=== PATIENT | male | born 2000 | race Caucasian/White ===

== ENCOUNTER 2024-03-27 20:29 | Emergency (ER) | payer SELFPAY ==
[~2024-03-27] VITALS: Ht 185.4 cm; Wt 77.2 kg
[2024-03-27 20:31] VITALS: BP 158/98; TEMP 97.5; O2SAT 100
[2024-03-27 21:04] LABS: BASO # 0.1 10^3/uL (0.0-0.2); BASO % 0.9 % (0.0-1.0); EOS # 0.1 10^3/uL (0.0-0.5); EOS % 1.7 % (0.0-3.0); HEMATOCRIT 40.5 % (42.0-52.0); HEMOGLOBIN 14.1 g/dl (13.5-17.5); LYMPH # 1.9 10^3/uL (1.5-5.0); LYMPH % 26.9 % (24.0-44.0); MEAN CORPUSCULAR HEMOGLOBIN 31.5 pg (27.0-33.0); MEAN CORPUSCULAR HGB CONC 34.8 g/dl (32.0-36.5); MEAN CORPUSCULAR VOLUME 90.4 fl (80.0-96.0); MONO # 0.6 10^3/uL (0.0-0.8); NEUTROPHILS # 4.3 10^3/uL (1.5-8.5); NEUTROPHILS % 62.4 % (36.0-66.0); PLATELET COUNT, AUTOMATED 187 10^3/uL (150-450); RED BLOOD COUNT 4.48 10^6/uL (4.30-6.10); WHITE BLOOD COUNT 6.9 10^3/uL (4.0-10.0)
[2024-03-27 21:35] LABS: BLOOD UREA NITROGEN 10 MG/DL (9-23); CALCIUM LEVEL 9.1 MG/DL (8.5-10.1); CARBON DIOXIDE LEVEL 29 MMOL/L (20-31); CHLORIDE LEVEL 107 MMOL/L (98-107); CREATININE FOR GFR 0.93 MG/DL (0.70-1.30); GLOMERULAR FILTRATION RATE > 60.0 (>60); GLUCOSE, FASTING 82 MG/DL (60-100); POTASSIUM SERUM 4.4 MMOL/L (3.5-5.1); SODIUM LEVEL 144 MMOL/L (136-145)
== END 2024-03-27 23:01 | disposition left against medical advice (07) ==
LOC: M ED 20:29
DX: Z53.21 Procedure and treatment not carried out due to patient leaving prior to being seen by health care provider (principal)

== ENCOUNTER 2024-04-16 13:25 | Inpatient (IN) | payer OTHER, SELFPAY ==
[~2024-04-16] VITALS: Ht 185.4 cm; Wt 69.6 kg
[2024-04-16 14:13] LABS: HEMATOCRIT 46.7 % (42.0-52.0); HEMOGLOBIN 15.9 g/dl (13.5-17.5); MEAN CORPUSCULAR HEMOGLOBIN 31.4 pg (27.0-33.0); MEAN CORPUSCULAR VOLUME 92.1 fl (80.0-96.0); PLATELET COUNT, AUTOMATED 228 10^3/uL (150-450); RED BLOOD COUNT 5.07 10^6/uL (4.30-6.10); WHITE BLOOD COUNT 7.4 10^3/uL (4.0-10.0)
[2024-04-16 14:39] LABS: ETHYL ALCOHOL (ETHANOL) < 0.003 % (0.000-0.010)
[2024-04-16 14:41] LABS: SALICYLATE LEVEL < 3.0 MG/DL (<30)
[2024-04-16 14:42] LABS: ALBUMIN 4.6 G/DL (3.2-5.2); ALKALINE PHOSPHATASE 114 U/L (40-129); ALT/SGPT 27 U/L (7.0-40); AST/SGOT 30 U/L (<34); BILIRUBIN,DIRECT 0.5 MG/DL (<0.4); BILIRUBIN,TOTAL 1.7 MG/DL (0.3-1.2); BLOOD UREA NITROGEN 9 MG/DL (9-23); CALCIUM LEVEL 9.8 MG/DL (8.5-10.1); CARBON DIOXIDE LEVEL 26 MMOL/L (20-31); CHLORIDE LEVEL 109 MMOL/L (98-107); CREATININE FOR GFR 1.04 MG/DL (0.70-1.30); GLOMERULAR FILTRATION RATE > 60.0 (>60); GLUCOSE, FASTING 85 MG/DL (60-100); POTASSIUM SERUM 4.3 MMOL/L (3.5-5.1); SODIUM LEVEL 145 MMOL/L (136-145); TOTAL PROTEIN 7.9 G/DL (5.7-8.2)
[2024-04-16 14:44] LABS: THYROID STIMULATING HORMONE 0.885 uIU/ML (0.55-4.78)
[2024-04-16] MEDS: ACETAMINOPHEN 325 MG TAB PO ONE (16:29)
[2024-04-16] MEDS ORDERED: HOME MED LIST COMPLETE! XX SCH (16:55)
[2024-04-16 17:18] LABS: AMPHETAMINES LEVEL URINE NEGATIVE (NEGATIVE); BARBITURATES URINE NEGATIVE (NEGATIVE); BENZODIAZEPINES URINE NEGATIVE (NEGATIVE); CANNABINOIDS URINE NEGATIVE (NEGATIVE); COCAINE METABOLITE URINE NEGATIVE (NEGATIVE); METHADONE URINE NEGATIVE (NEGATIVE); OPIATES URINE NEGATIVE (NEGATIVE); PHENCYCLIDINE URINE NEGATIVE (NEGATIVE)
[2024-04-16] MEDS ORDERED: LORazepam 1 MG TAB PO PRN (22:15)
[2024-04-16] MEDS ORDERED: IBUPROFEN 400MG TAB PO PRN (22:15)
[2024-04-16] MEDS ORDERED: MAALOX 30 ML SUSP *UDC PO PRN (22:15)
[2024-04-16] MEDS ORDERED: MOM 30ML SUSPENSION UDC PO PRN (22:15)
[2024-04-16] MEDS ORDERED: OLANZapine ORAL DISINTEGRATING TAB 5MG PO PRN (22:15)
[2024-04-16] MEDS ORDERED: diphenhydrAMINE 25MG CAP PO PRN (22:15)
[2024-04-16 22:51] VITALS: BP 127/75; TEMP 97.4; O2SAT 100
[2024-04-17 06:53] VITALS: BP 103/54; TEMP 97.6; O2SAT 99
[2024-04-17] MEDS: NICOTINE 14 MG/24 HR TRANSDERMAL TD SCH (08:48)
[2024-04-17 15:02] VITALS: BP 148/82; TEMP 98.7; O2SAT 99
[2024-04-17] MEDS: LURASIDONE 20 MG TAB (LATUDA) PO SCH (18:11)
[2024-04-18 06:50] VITALS: BP 115/61; TEMP 97.9; O2SAT 96
[2024-04-18] MEDS ORDERED: LORazepam 2 MG TAB PO PRN (09:50)
[2024-04-18 10:07] VITALS: BP 149/83
[2024-04-18] MEDS: MULTIVITAMINS/MINERALS THERAP 1 TAB PO SCH (10:07)
[2024-04-18] MEDS: THIAMINE 100 MG TAB PO SCH (10:07)
[2024-04-18] MEDS: FOLIC ACID 1MG TAB PO SCH (10:07)
[2024-04-18] MEDS: buPROPion **XL** TABLET 150MG (WELLBUTRIN XL) PO SCH (12:53)
[2024-04-18 15:02] VITALS: BP 138/88
[2024-04-18 17:09] VITALS: BP 138/88; TEMP 98.8; O2SAT 99
[2024-04-18] MEDS: traZODone 50 MG TAB PO PRN (22:04)
[2024-04-18 23:00] VITALS: BP 131/80
[2024-04-19 06:45] VITALS: BP 122/68; TEMP 97.9; O2SAT 100
[2024-04-19 14:38] VITALS: BP 131/73
[2024-04-19 16:06] VITALS: BP 131/73; TEMP 97.8
[2024-04-19] MEDS: ACETAMINOPHEN 325 MG TAB PO PRN (19:31)
[2024-04-20 06:41] VITALS: BP 119/60
[2024-04-20 06:48] VITALS: BP 119/60; TEMP 97.6; O2SAT 100
[2024-04-20 16:13] VITALS: BP 122/83; TEMP 98.8; O2SAT 100
[2024-04-20 20:12] VITALS: BP 142/88
[2024-04-20] MEDS: PRAZOSIN 1 MG CAP PO SCH (20:12)
[2024-04-21 06:39] VITALS: BP 139/87; TEMP 97.5; O2SAT 100
[2024-04-21] MEDS ORDERED: TRAZ-252 PO (11:48)
[2024-04-21] MEDS ORDERED: PRAZ1CAP PO (11:48)
[2024-04-21] MEDS ORDERED: BUPR150T12 PO (11:48)
[2024-04-21] MEDS ORDERED: HYDR-3363 PO (11:48)
== END 2024-04-21 12:37 | disposition home or self-care (01) | DRG 885 ==
LOC: M ED 13:25 → M ED INP 22:11 → M PSY 22:43
PROVIDERS: ADMIT Psychiatry & Neurology Neurology; ATTEND Psychiatry & Neurology Neurology
DX: F31.81 Bipolar II disorder (principal); R45.851 Suicidal ideations; F14.90 Cocaine use, unspecified, uncomplicated; F41.9 Anxiety disorder, unspecified; F17.200 Nicotine dependence, unspecified, uncomplicated

== ENCOUNTER 2024-10-05 21:45 | Emergency (ER) | payer OTHER ==
[~2024-10-05] VITALS: Ht 182.9 cm; Wt 75.0 kg
[~2024-10-05 21:45] MED LIST: BUPR150T12 PO; HYDR-3363 PO; PRAZ1CAP PO; TRAZ-252 PO
[2024-10-06 02:17] LABS: BASO # 0.0 10^3/uL (0.0-0.2); BASO % 0.6 % (0.0-1.0); EOS # 0.1 10^3/uL (0.0-0.5); EOS % 0.9 % (0.0-3.0); LYMPH # 1.1 10^3/uL (1.5-5.0); LYMPH % 17.2 % (24.0-44.0); MONO # 0.8 10^3/uL (0.0-0.8); MONO % 11.7 % (2.0-8.0); NEUTROPHILS # 4.5 10^3/uL (1.5-8.5); NEUTROPHILS % 69.3 % (36.0-66.0); PLATELET COUNT, AUTOMATED 179 10^3/uL (150-450)
[2024-10-06 02:35] LABS: CALCIUM LEVEL 9.2 MG/DL (8.5-10.1); CARBON DIOXIDE LEVEL 24 MMOL/L (20-31); CHLORIDE LEVEL 102 MMOL/L (98-107); CREATININE FOR GFR 0.89 MG/DL (0.70-1.30); GLOMERULAR FILTRATION RATE > 90.0 (>60); POTASSIUM SERUM 4.0 MMOL/L (3.5-5.1); SODIUM LEVEL 141 MMOL/L (136-145)
[2024-10-06] MEDS: NS (Normal Saline) 0.9% 1,000 ML IV ONE (02:42)
[2024-10-06] MEDS: KETOROLAC 30 MG/ML 1 ML VIAL IV ONE (02:43)
[2024-10-06] MEDS: PROCHLORPERAZINE 10MG/2ML VIAL IV ONE (02:43)
[2024-10-06] MEDS: diphenhydrAMINE 50 MG/ML VIAL IV ONE (02:43)
[2024-10-06] MEDS ORDERED: ONDA-282 PO (04:20)
[2024-10-06 04:30] VITALS: BP 101/55; TEMP 98.5; O2SAT 100
== END 2024-10-06 04:30 | disposition home or self-care (01) ==
LOC: M ED 21:45
DX: B34.8 Other viral infections of unspecified site (principal); F32.A Depression, unspecified; F17.200 Nicotine dependence, unspecified, uncomplicated; Z79.83 Long term (current) use of bisphosphonates; Z79.899 Other long term (current) drug therapy
CPT/HCPCS: 71046; 80048; 85025; 87486; 87581; 87633; 87798; 87880; 96361; 96374; 99284; J0780; J1200; J1885

== ENCOUNTER 2025-01-14 03:10 | Inpatient (IN) | payer OTHER ==
[~2025-01-14] VITALS: Ht 182.9 cm; Wt 77.8 kg
[~2025-01-14 03:10] MED LIST changes: +ONDA-282 PO
[2025-01-14 03:59] LABS: BASO # 0.1 10^3/uL (0.0-0.2); BASO % 0.7 % (0.0-1.0); EOS # 0.2 10^3/uL (0.0-0.5); EOS % 2.2 % (0.0-3.0); LYMPH # 2.5 10^3/uL (1.5-5.0); LYMPH % 25.5 % (24.0-44.0); MONO # 0.5 10^3/uL (0.0-0.8); MONO % 5.3 % (2.0-8.0); NEUTROPHILS # 6.3 10^3/uL (1.5-8.5); NEUTROPHILS % 66.0 % (36.0-66.0); PLATELET COUNT, AUTOMATED 261 10^3/uL (150-450)
[2025-01-14 04:15] LABS: ETHYL ALCOHOL (ETHANOL) 0.168 % (0.000-0.010)
[2025-01-14 04:17] LABS: ALT/SGPT 27 U/L (7.0-40); AST/SGOT 21 U/L (<34); CALCIUM LEVEL 8.4 MG/DL (8.5-10.1); CARBON DIOXIDE LEVEL 25 MMOL/L (20-31); CHLORIDE LEVEL 106 MMOL/L (98-107); CPK CREATINE PHOSPHOKINASE 80 U/L (46-171); CREATININE FOR GFR 0.81 MG/DL (0.70-1.30); GLOMERULAR FILTRATION RATE > 90.0 (>60); POTASSIUM SERUM 3.7 MMOL/L (3.5-5.1); SALICYLATE LEVEL < 3.0 MG/DL (<30); SODIUM LEVEL 143 MMOL/L (136-145)
[2025-01-14 05:32] LABS: ABG BASE EXCESS -1.5 (-2.0-2.0); ABG HCO3 22.6 MMOL/L (22.0-26.0); ABG O2 SATURATION 98.5 % (95.0-99.0); ABG PARTIAL PRESSURE CO2 36.4 mmHg (35.0-45.0); ABG PARTIAL PRESSURE O2 113.4 mmHg (75.0-100.0); ABG STANDARD HCO3 23.2 MMOL/L. (22.0-26.0); ABG TOTAL CO2 23.7 MMOL/L (22.0-29.0); ABG pH (ARTERIAL) 7.410 UNITS (7.350-7.450)
[2025-01-14] MEDS: NS (Normal Saline) 0.9% 1,000 ML IV ONE (06:47)
[2025-01-14] MEDS: FOLIC ACID 1 MG TAB PO SCH (09:00)
[2025-01-14 10:06] LABS: AMPHETAMINES LEVEL URINE NEGATIVE (NEGATIVE); BARBITURATES URINE NEGATIVE (NEGATIVE); BENZODIAZEPINES URINE NEGATIVE (NEGATIVE); CANNABINOIDS URINE NEGATIVE (NEGATIVE); COCAINE METABOLITE URINE NEGATIVE (NEGATIVE); METHADONE URINE NEGATIVE (NEGATIVE); OPIATES URINE NEGATIVE (NEGATIVE); PHENCYCLIDINE URINE NEGATIVE (NEGATIVE)
[2025-01-14] MEDS ORDERED: HYDR-3363 PO (10:50)
[2025-01-14] MEDS ORDERED: FLUT15.820 (10:50)
[2025-01-14] MEDS ORDERED: CETI-24 PO (10:50)
[2025-01-14] MEDS ORDERED: ACET1TAB55 PO (10:50)
[2025-01-14] MEDS ORDERED: HOME MED LIST COMPLETE! XX SCH (10:50)
[2025-01-14] MEDS ORDERED: PSEU120T19 PO (10:50)
[2025-01-14] MEDS ORDERED: IBUP1TAB7 PO (10:50)
[2025-01-14] MEDS ORDERED: ACETAMINOPHEN 325 MG TAB PO PRN (12:05)
[2025-01-14] MEDS ORDERED: MAALOX 30 ML SUSP *UDC PO PRN (12:05)
[2025-01-14] MEDS ORDERED: MOM 30 ML SUSPENSION UDC PO PRN (12:05)
[2025-01-14] MEDS ORDERED: IBUPROFEN 400 MG TAB PO PRN (12:05)
[2025-01-14 12:38] VITALS: BP 115/64; TEMP 96.8; O2SAT 100
[2025-01-14] MEDS: THIAMINE 100 MG TAB PO SCH (13:00)
[2025-01-14] MEDS: NICOTINE 21 MG/24 HR 1 EA TRANSDERMAL TD SCH (13:31)
[2025-01-14] MEDS: traZODone 50 MG TAB PO PRN (20:47)
[2025-01-14 22:00] VITALS: BP 115/64
[2025-01-15] MEDS: MULTIVITAMINS/MINERALS THERAP 1 TAB PO SCH (09:04)
[2025-01-15 14:28] VITALS: BP 133/85
[2025-01-15] MEDS: NICOTINE POLACRILEX 2 MG GUM PO PRN (15:30)
[2025-01-15 18:41] VITALS: BP 137/81; TEMP 98; O2SAT 100
[2025-01-16 06:46] VITALS: BP 133/83; TEMP 97.8; O2SAT 99
[2025-01-16 16:25] VITALS: BP 136/84; TEMP 98; O2SAT 100
[2025-01-17 06:44] VITALS: BP 112/69; TEMP 97.1; O2SAT 100
[2025-01-17 17:07] VITALS: BP 124/81; TEMP 97.4; O2SAT 100
[2025-01-18 06:32] VITALS: BP 124/68; TEMP 98.1; O2SAT 99
== END 2025-01-18 10:23 | disposition home or self-care (01) | DRG 880 ==
LOC: EDBD 03:10 → M ED 03:10 → M ED INP 10:56 → M PSY 12:22
PROVIDERS: ADMIT Psychiatry & Neurology Addiction Psychiatry; ATTEND Psychiatry & Neurology Addiction Psychiatry
DX: F41.1 Generalized anxiety disorder (principal); F10.20 Alcohol dependence, uncomplicated; Z79.899 Other long term (current) drug therapy; F43.10 Post-traumatic stress disorder, unspecified; F31.9 Bipolar disorder, unspecified